=== PATIENT | female | born 1980 | race Caucasian/White ===

== ENCOUNTER 2021-09-28 14:21 | Emergency (ER) | payer SELFPAY ==
[~2021-09-28] VITALS: Ht 152.4 cm; Wt 65.0 kg
[~2021-09-28 14:21] MED LIST: ANTIVERT OR; DENIES HOME MEDS; NO MEDS; REGLAN10 MG OR; ULTRAM50 M1 OR
[2021-09-28 14:52] VITALS: BP 105/74
[2021-09-28 15:00] VITALS: BP 118/70
[2021-09-28] MEDS ORDERED: VOLTAREN1%GEL TOP (15:20)
[2021-09-28] MEDS ORDERED: FLEXERIL5 M1 PO (15:21)
[2021-09-28 16:23] VITALS: BP 118/70
== END 2021-09-28 16:39 | disposition home or self-care (01) | DRG 556 ==
LOC: ED 14:21
DX: M25.511 Pain in right shoulder (principal); F17.210 Nicotine dependence, cigarettes, uncomplicated

== ENCOUNTER 2021-10-12 13:30 | Emergency (ER) | payer SELFPAY ==
[~2021-10-12] VITALS: Ht 152.4 cm; Wt 59.0 kg
[~2021-10-12 13:30] MED LIST changes: +FLEXERIL5 M1 PO; +VOLTAREN1%GEL TOP
[2021-10-12 13:41] VITALS: BP 124/81
[2021-10-12 14:15] LABS: URINE BILIRUBIN - DIPSTICK NEGATIVE (NEGATIVE); URINE BLOOD DIPSTICK MODERATE (NEGATIVE); URINE COLOR YELLOW; URINE GLUCOSE - DIPSTICK NEGATIVE (NEGATIVE); URINE KETONE NEGATIVE (NEGATIVE); URINE LEUK ESTERASE NEGATIVE (NEGATIVE); URINE PROTEIN - DIPSTICK TRACE mg/dL (NEG-TRACE); URINE SPECIFIC GRAVITY 1.025; URINE UROBILINOGEN - DIPSTICK 0.2 E.U./dL (0.2)
[2021-10-12 14:16] LABS: URINE EPITHELIAL CELLS FEW EPI/hpf (0-FEW); URINE NITRITE - DIPSTICK NEGATIVE (Negative)
[2021-10-12] MEDS ORDERED: ZPAK PO (14:45)
[2021-10-12] MEDS ORDERED: TESSALON PERLE100 MG PO (14:45)
[2021-10-12] MEDS ORDERED: ZOFRAN4 MG/TAB PO (14:45)
[2021-10-12 14:53] VITALS: BP 124/81
== END 2021-10-12 15:17 | disposition home or self-care (01) | DRG 179 ==
LOC: ED 13:30
DX: U07.1 COVID-19 (principal); R05.9 Cough, unspecified; R50.9 Fever, unspecified; R52 Pain, unspecified; R11.2 Nausea with vomiting, unspecified; F17.210 Nicotine dependence, cigarettes, uncomplicated